=== PATIENT | female | born 1995 | race African-American/Black ===

== ENCOUNTER 2017-09-06 17:46 | Emergency (ER) | payer OTHER ==
[2017-09-06 17:55] VITALS: BP 143/67; BMI 25.4
[2017-09-06] MEDS ORDERED: ACETAMINOPHEN 500 MG TABLET (FP) PO ONE (17:55)
--- NOTE | 2017-09-06 17:55 | PDOC ---
Rapid Medical Evaluation Time Seen by Provider: 09/06/17 17:49 Medical Evaluation: 09/06/17 17:49 I have performed a brief in-person evaluation of this patient. The patient presents with a chief complaint of right chest pain and muscle pain with coughing. States all symptoms started on Tuesday and worse today. Took otc medication with no relief on and tuesday Pertinent physical exam findings: NAD lungs clear bilateral, diminished might be due to poor effort heart s1s2 I have ordered the following: antipyretic The patient will proceed to the Ed for further evaluation. 09/06/17 17:56
--- NOTE | 2017-09-06 20:34 | PDOC ---
History of Present Illness - General Chief Complaint: Cold Symptoms Stated Complaint: COLD SYMPTOMS Time Seen by Provider: 09/06/17 17:49 History Source: Patient Exam Limitations: No Limitations - History of Present Illness Initial Comments: CHIEF COMPLAINT: 22 y/o febrile, tachycardic female c/o 4 days of right sided chest tightness, fever, chills and cough. HISTORY OF PRESENT ILLNESS: The patient states the symptoms started 4 days ago. She took theraflu and tylenol and was feeling better so continued to go to work. Yesterday she forgot to take the tylenol and today woke up feeling worse. She denies earache, sore throat, runny nose, n/v/d, abd pain, back pain. Vital signs on arrival are notable for pulse of 117 secondary to temp of 102.2. REVIEW OF SYSTEMS: GENERAL/CONSTITUTIONAL: + fever/chills. No weakness. No weight change. HEAD, EYES, EARS, NOSE AND THROAT: No change in vision. No ear pain or discharge. No sore throat. CARDIOVASCULAR: +SOB and pain in right ribs with deep breaths. RESPIRATORY: +dry cough. No wheezing or hemoptysis. GASTROINTESTINAL: No abd pain, nausea, vomiting, diarrhea. GENITOURINARY: No dysuria, frequency, or change in urination. MUSCULOSKELETAL: No joint or muscle swelling or pain. No neck or back pain. SKIN: No rash or easy bruising. NEUROLOGIC: No headache, vertigo, loss of consciousness, or loss of sensation. PHYSICAL EXAM: GENERAL: The patient is awake, alert, and fully oriented, non toxic but ill appearing. HEAD: Normal with no signs of trauma. ENT: Pupils equal, round and reactive to light, extraocular movements intact, sclera anicteric, conjunctiva clear. LUNGS: Decreased breath sounds right base. Normal excursion. No respiratory distress or use of accessory muscles. CHEST WALL: Some reproducible pain with palpation of right lateral chest wall and right posterior chest wall. CV: RRR, S1/S2, no MRG. Cap refill < 2 sec. ABDOMEN: Soft, non-distended, non-tender even to deep palpation, no hepatomegaly or splenomegaly, no masses. EXTREMITIES: Normal range of motion, no edema. NEUROLOGICAL: Normal speech, normal gait. CN II-XII grossly intact. PSYCH: Normal mood, normal affect. SKIN: Warm, dry, normal turgor, no rashes or lesions noted. Past History - Past Medical History Allergies/Adverse Reactions: Allergies Allergy/AdvReac Type Severity Reaction Status Date / Time No Known Allergies Allergy Verified 09/06/17 17:50 Home Medications: Ambulatory Orders Amoxicillin/Potassium Clav [Augmentin 875-125 Tablet] 1 each PO BID #14 tablet 09/06/17 COPD: No DVT: No Dementia: No Diabetes: No - Immunization History Immunization Up to Date: Yes - Suicide/Smoking/Psychosocial Hx Smoking History: Never smoked Have you smoked in the past 12 months: No Information on smoking cessation initiated: No Hx Alcohol Use: No Drug/Substance Use Hx: No Substance Use Type: None *Physical Exam - Vital Signs Last Vital Signs Temp Pulse Resp BP Pulse Ox 98.9 F 117 H 18 143/67 99 09/06/17 19:49 09/06/17 17:50 09/06/17 17:50 09/06/17 17:50 09/06/17 17:50 ED Treatment Course - Medications Given in the ED: ED Medications Discontinued Medications Generic Name Dose Route Start Last Admin Trade Name Syedq PRN Reason Stop Dose Admin Acetaminophen 975 mg 09/06/17 17:55 09/06/17 19:49 Tylenol - PO 09/06/17 17:56 975 mg ONCE ONE Administration Medical Decision Making - Medical Decision Making A/P: 22 y/o febrile female with flu vs pneumonia vs pneumothorax. Plan is as follows: 1. influenza 2. Tylenol po 3. hcg 4. CXR Influenza A&B - negative CXR IMPRESSION: Right middle lobe infiltrate Patient given results. Vital improved. Will given first dose of augmentin in ER. Will send rx to pharmacy. Instructed the patient to drink plenty of fluids , get lots of rest and take tylenol/motrin for fever. Pt instructed to return to the ER with any worsening or concerning symptoms. The patient verbalizes understanding of all instructions, has no further questions and is awaiting discharge. *DC/Admit/Observation/Transfer Diagnosis at time of Disposition: Community acquired pneumonia Qualifiers: Laterality: right Lung location: middle lobe of lung Qualified Code(s): J18.1 - Lobar pneumonia, unspecified organism - Discharge Dispostion Disposition: HOME Condition at time of disposition: Improved - Referrals Referrals: Aissatou Santos [Primary Care Provider] - - Patient Instructions Printed Discharge Instructions: DI for Pneumonia -- Adult Additional Instructions: Discharge Instructions: -You have pneumonia -A prescription for antibiotics has been sent to your pharmacy; please take entire 7 days -Continue taking tylenol or motrin for fever/pain -Get lots of rest and drink plenty of fluids -Return to the ER with any worsening or concerning symptoms - Post Discharge Activity Forms/Work/School Notes: Back to Work
[2017-09-06] MEDS ORDERED: AMOX TR/POT CLAV 875MG/125MG TABLETS (FP) PO ONE (21:56)
[2017-09-06] MEDS ORDERED: AMOX TR/POT CLAV 875MG/125MG TABLETS (FP) ONE ×2 (22:03→22:04)
[2017-09-06 22:12] VITALS: PULSE 92; TEMP 98.3
== END 2017-09-06 22:21 | disposition home or self-care (01) ==
LOC: JER 17:46 → JERFT 17:46
DX: J18.1 Lobar pneumonia, unspecified organism (principal)
CPT/HCPCS: 71046-TC; 84703; 87804; 99281-25